=== PATIENT | male | born 2000 | race Caucasian/White ===

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

== ENCOUNTER 2019-01-31 14:13 | Emergency (ER) | payer OTHER ==
[~2019-01-31 14:13] MED LIST: CEPH500 PO
== END 2019-01-31 14:38 | disposition left against medical advice (07) ==
LOC: EMS 14:15
DX: R06.02 Shortness of breath (principal); Z53.21 Procedure and treatment not carried out due to patient leaving prior to being seen by health care provider

== ENCOUNTER 2021-08-23 15:22 | Emergency (ER) | payer OTHER ==
[~2021-08-23] VITALS: Ht 172.7 cm; Wt 89.1 kg
[2021-08-23 16:00] VITALS: BP 114/70
== END 2021-08-23 16:46 | disposition home or self-care (01) ==
LOC: EMS 15:24
DX: T18.9XXA Foreign body of alimentary tract, part unspecified, initial encounter (principal); F12.90 Cannabis use, unspecified, uncomplicated; F17.210 Nicotine dependence, cigarettes, uncomplicated; J45.909 Unspecified asthma, uncomplicated; X58.XXXA Exposure to other specified factors, initial encounter; Y93.89 Activity, other specified; Y92.89 Other specified places as the place of occurrence of the external cause; Y99.8 Other external cause status
CPT/HCPCS: 99281; Z7502

== ENCOUNTER 2023-12-09 16:50 | Emergency (ER) | payer OTHER ==
[~2023-12-09] VITALS: Ht 167.6 cm; Wt 68.2 kg
[2023-12-09 17:26] LABS: COVID AG,FIA SOURCE NASAL SWAB
[2023-12-09 17:32] LABS: INFLUENZA TYPE A NEGATIVE FOR TYPE A (NEGATIVE); INFLUENZA TYPE B NEGATIVE FOR TYPE B (NEGATIVE); SARS-COV2 (COVID) ANTIGEN,FIA Negative (Negative)
[2023-12-09] MEDS: ACETAMINOPHEN 500 MG TABLET PO ONE (18:05)
[2023-12-09] MEDS ORDERED: 0.9% SODIUM CHLORIDE 5 ML NEB SOLUTION NEB ONE (18:10)
[2023-12-09] MEDS: IPRATROPIUM BROMIDE 0.5 MG/2.5 ML NEB SOLUTION NEB ONE (18:15)
[2023-12-09] MEDS: ALBUTEROL SULFATE 2.5 MG/0.5 ML 5 ML NEB SOLUTION NEB ONE (18:15)
[2023-12-09 18:20] VITALS: PULSE 101; RESP 18; O2SAT 98
[2023-12-09 18:31] VITALS: TEMP 99.8
[2023-12-09 19:15] VITALS: PULSE 94; RESP 17; O2SAT 100
[2023-12-09 19:34] VITALS: BP 132/88; PULSE 87; RESP 18
== END 2023-12-09 19:36 | disposition home or self-care (01) ==
LOC: EMS 17:03
DX: J06.9 Acute upper respiratory infection, unspecified (principal); J45.901 Unspecified asthma with (acute) exacerbation; F17.210 Nicotine dependence, cigarettes, uncomplicated; F12.90 Cannabis use, unspecified, uncomplicated; Z20.822 Contact with and (suspected) exposure to COVID-19
CPT/HCPCS: 99285; 71045; 87426; 87804; 94640; Q9967; 94644

== ENCOUNTER 2023-12-18 10:37 | Emergency (ER) | payer OTHER ==
[~2023-12-18] VITALS: Ht 170.2 cm; Wt 109.1 kg
[2023-12-18 10:39] VITALS: TEMP 98.2
[2023-12-18 11:02] VITALS: BP 121/77; PULSE 86; RESP 16
== END 2023-12-18 12:25 | disposition home or self-care (01) ==
LOC: EMS 10:50
DX: R09.81 Nasal congestion (principal); J45.909 Unspecified asthma, uncomplicated; F17.210 Nicotine dependence, cigarettes, uncomplicated; F12.90 Cannabis use, unspecified, uncomplicated; Z13.9 Encounter for screening, unspecified
CPT/HCPCS: 99281; Z7502